=== PATIENT | female | born 1940 | race Caucasian/White ===

== ENCOUNTER 2018-11-05 07:55 | Outpatient (CLI) | payer MEDICARE ==
[2018-11-05 12:48] LABS: BASOPHILS # (AUTO) 0.05 x10^3/uL (0-0.1); BASOPHILS % (AUTO) 1 % (0-1); EOSINOPHILS # (AUTO) 0.21 x10^3/uL (0-0.4); EOSINOPHILS % (AUTO) 3 % (1-7); LYMPHOCYTES # (AUTO) 1.52 x10^3/uL (1-3.4); LYMPHOCYTES % (AUTO) 25 % (22-44); MD NO; MEAN CORPUSCULAR HEMOGLOBIN 32.9 pg (27.0-34.8); MEAN CORPUSCULAR HGB CONC 33.7 g/dL (32.4-35.8); MEAN CORPUSCULAR VOLUME 97.5 fL (80-100); MEAN PLATELET VOLUME 8.5 fL (7.4-10.4); MONOCYTES # (AUTO) 0.52 x10^3/uL (0.2-0.8); MONOCYTES % (AUTO) 9 % (2-9); NEUTROPHILS # (AUTO) 3.85 x10^3/uL (1.8-6.8); NEUTROPHILS % (AUTO) 63 % (42-75); PLATELET COUNT 215 x10^3/uL (130-400); RED BLOOD COUNT 4.36 x10^6/uL (3.82-5.3); RED CELL DISTRIBUTION WIDTH 13.2 % (9.6-15.2)
[2018-11-05 12:49] LABS: MICROSCOPIC AUTO
[2018-11-05 14:55] LABS: CHLORIDE 110 mmol/L (98-107)
[2018-11-05 15:13] LABS: ALANINE AMINOTRANSFERASE 23 U/L (12-78); ALBUMIN 3.9 g/dL (3.4-5.0); ALKALINE PHOSPHATASE 80 U/L (45-117); ANION GAP 6 mmol/L (5-15); BILIRUBIN,TOTAL 0.7 mg/dL (0.2-1.0); CALCIUM 8.6 mg/dL (8.5-10.1); CHOL/HDL RATIO 2.3; CHOLESTEROL, TOTAL 203 mg/dL (140-239); HDL CHOL % 44 % (28-40); HDL CHOLESTEROL (DIRECT) 90 mg/dL (40-60); LDL CHOLESTEROL,CALCULATED 104 mg/dL (54-169); LDL/HDL RATIO 1.2 (0.5-3.0); TOTAL PROTEIN 6.5 g/dL (6.4-8.2); TRIGLYCERIDES 44 mg/dL (50-200); VLDL CHOLESTEROL 9 mg/dL (0-25)
[2018-11-05 16:05] LABS: HEMOGLOBIN A1C 5.6 % (4.2-6.3)
== END 2018-11-05 23:59 | disposition home or self-care (01) ==
LOC: CFH 07:55
PROVIDERS: ATTEND Surgery
DX: N64.4 Mastodynia (principal); Z85.3 Personal history of malignant neoplasm of breast; R79.89 Other specified abnormal findings of blood chemistry
CPT/HCPCS: 36415; 80053; 80061; 81001; 82306; 82378; 83036; 84443; 85025; 86300

== ENCOUNTER 2019-12-22 07:39 | Outpatient (CLI) | payer MEDICARE ==
[2019-12-22 13:01] LABS: BASOPHILS # (AUTO) 0.04 x10^3/uL (0-0.1); BASOPHILS % (AUTO) 1 % (0-1); EOSINOPHILS # (AUTO) 0.18 x10^3/uL (0-0.4); EOSINOPHILS % (AUTO) 3 % (1-7); LYMPHOCYTES # (AUTO) 1.95 x10^3/uL (1-3.4); LYMPHOCYTES % (AUTO) 31 % (22-44); MD NO; MEAN CORPUSCULAR HGB CONC 33.5 g/dL (32.4-35.8); MEAN CORPUSCULAR VOLUME 98.5 fL (80-100); MEAN PLATELET VOLUME 8.2 fL (7.4-10.4); MONOCYTES # (AUTO) 0.49 x10^3/uL (0.2-0.8); MONOCYTES % (AUTO) 8 % (2-9); NEUTROPHILS # (AUTO) 3.59 x10^3/uL (1.8-6.8); NEUTROPHILS % (AUTO) 58 % (42-75); PLATELET COUNT 199 x10^3/uL (130-400); RED BLOOD COUNT 4.26 x10^6/uL (3.82-5.3); RED CELL DISTRIBUTION WIDTH 13.2 % (9.6-15.2)
[2019-12-22 13:12] LABS: MICROSCOPIC AUTO
[2019-12-22 14:58] LABS: ALBUMIN 3.8 g/dL (3.4-5.0); ANION GAP 6 mmol/L (5-15); CALCIUM 8.8 mg/dL (8.5-10.1); CHLORIDE 110 mmol/L (98-107)
[2019-12-22 15:02] LABS: ALANINE AMINOTRANSFERASE 21 U/L (12-78); ALKALINE PHOSPHATASE 84 U/L (45-117); BILIRUBIN,TOTAL 0.8 mg/dL (0.2-1.0); CHOL/HDL RATIO 2.3; CHOLESTEROL, TOTAL 221 mg/dL (140-239); CREATININE 0.96 mg/dL (0.55-1.02); HDL CHOL % 44 % (28-40); HDL CHOLESTEROL (DIRECT) 98 mg/dL (40-60); LDL CHOLESTEROL,CALCULATED 114 mg/dL (54-169); LDL/HDL RATIO 1.2 (0.5-3.0); TOTAL PROTEIN 6.5 g/dL (6.4-8.2); TRIGLYCERIDES 47 mg/dL (50-200); VLDL CHOLESTEROL 9 mg/dL (0-25)
== END 2019-12-22 23:59 | disposition home or self-care (01) ==
LOC: CFH 07:39
PROVIDERS: ATTEND Surgery
DX: R06.02 Shortness of breath (principal); R36.0 Urethral discharge without blood; M19.90 Unspecified osteoarthritis, unspecified site; M54.2 Cervicalgia; Z85.3 Personal history of malignant neoplasm of breast; R42 Dizziness and giddiness
CPT/HCPCS: 36415; 80053; 80061; 81001; 82306; 82378; 83036; 84443; 85025; 86300

== ENCOUNTER → 2019-12-30 | Outpatient (CLI) | payer MEDICARE | END | disposition home or self-care (01) | LOC: CFH 12:23 | PROVIDERS: ATTEND Surgery | DX: R91.8 Other nonspecific abnormal finding of lung field (principal); M19.90 Unspecified osteoarthritis, unspecified site; M54.2 Cervicalgia; R42 Dizziness and giddiness; Z85.3 Personal history of malignant neoplasm of breast; Z87.891 Personal history of nicotine dependence | CPT/HCPCS: 71250; 76642; 77066; G0279 ==

== ENCOUNTER 2020-05-24 10:01 | Outpatient (CLI) | payer MEDICARE | END 2020-05-24 23:59 | disposition home or self-care (01) | LOC: CFH 10:01 | PROVIDERS: ATTEND Surgery | DX: S23.41XA Sprain of ribs, initial encounter (principal); J43.9 Emphysema, unspecified; R07.82 Intercostal pain; W19.XXXA Unspecified fall, initial encounter; Y93.89 Activity, other specified; Y92.89 Other specified places as the place of occurrence of the external cause; Y99.8 Other external cause status | CPT/HCPCS: 71046 ==

== ENCOUNTER → 2020-10-13 | Outpatient (CLI) | payer MEDICARE | END | disposition home or self-care (01) | LOC: CFH 13:13 | PROVIDERS: ATTEND Surgery | DX: I77.810 Thoracic aortic ectasia (principal); R91.8 Other nonspecific abnormal finding of lung field; M47.816 Spondylosis without myelopathy or radiculopathy, lumbar region; Z90.5 Acquired absence of kidney; Z87.891 Personal history of nicotine dependence | CPT/HCPCS: 71250; 74176 ==

== ENCOUNTER 2020-11-24 13:05 | Emergency (ER) | payer MEDICARE ==
[~2020-11-24] VITALS: Ht 154.9 cm; Wt 43.6 kg
--- NOTE | 2020-11-24 13:41 | NUR ---
PUBLIC RELATIONS SPECIALIST: PT AMBULATORY TO ROOM FROM LOBBY.
[2020-11-24] MEDS ORDERED: predniSONE 50MG TABLET PO/NG ONE (14:00)
[2020-11-24] MEDS ORDERED: ALBUTEROL SULFATE 2.5 MG/3 ML NPPB ONE (14:00)
[2020-11-24] MEDS ORDERED: ALBUTEROL SULFATE 2.5 MG/3 ML ONE (14:00)
--- NOTE | 2020-11-24 14:06 | NUR ---
BREAK RN: NEBULIZER STARTED, XRAY SHOWED UP AT THIS TIME.
--- NOTE | 2020-11-24 14:18 | NUR ---
PT WAS SOB AND REQUIRING INHALER CALLED HER PCP AND SX WHO COULD NOT GET HER IN TODAY AND INSTRUCTED HER TO COME TO THE ED. BREAK RN: MEDS GIVEN, SEE EMAR. PT VSS, NO DISTRESS.
[2020-11-24 14:47] VITALS: BP 136/69
--- NOTE | 2020-11-24 14:59 | NUR ---
Patient given discharge instructions and prescription and they have confirmed that they understand the instructions. Patient stable and ambulatory with steady gait from ED to private vehicle.
== END 2020-11-24 15:00 | disposition home or self-care (01) ==
LOC: ED 14:48
DX: J10.1 Influenza due to other identified influenza virus with other respiratory manifestations (principal); R94.31 Abnormal electrocardiogram [ECG] [EKG]
CPT/HCPCS: 71045; 93005; 94640; 99283; J7512; J7613

== ENCOUNTER → 2021-02-24 | Outpatient (CLI) | payer MEDICARE | END | disposition home or self-care (01) | LOC: CFH 14:15 | PROVIDERS: ATTEND Surgery | DX: Z85.3 Personal history of malignant neoplasm of breast (principal) | CPT/HCPCS: 76642; 77062; 77066; G0279 ==